=== PATIENT | male | born 1995 | race Caucasian/White ===

== ENCOUNTER 2021-02-04 12:09 | Outpatient (CLI) | payer MEDICARE, MEDICAID ==
[2021-02-04 12:38] LABS: BASOPHILS # (AUTO) 0.1 10^3/uL (0.0-0.1); BASOPHILS % (AUTO) 1.1 %; EOSINOPHILS # (AUTO) 0.2 10^3/uL (0.0-0.7); EOSINOPHILS % (AUTO) 3.5 %; HCT - HEMATOCRIT 42.5 % (42.0-52.0); HGB - HEMOGLOBIN 13.9 g/dL (14.0-18.0); LYMPHOCYTES # (AUTO) 1.5 10^3/uL (1.5-3.5); LYMPHOCYTES % (AUTO) 31.8 %; MEAN CORPUSCULAR HEMOGLOBIN 28.7 pg (27.0-31.0); MEAN CORPUSCULAR HGB CONC 32.7 g/dL (32.0-36.0); MEAN CORPUSCULAR VOLUME 87.6 fL (80.0-94.0); MEAN PLATELET VOLUME 8.9 fL (7.4-11.4); MONOCYTES # (AUTO) 0.2 10^3/uL (0.0-1.0); MONOCYTES % (AUTO) 4.8 %; NEUTROPHILS # (AUTO) 2.7 10^3/uL (1.5-6.6); NEUTROPHILS % (AUTO) 58.6 %; PLT - PLATELET COUNT 237 10^3/uL (130-450); RED BLOOD COUNT 4.85 10^6/uL (4.70-6.10); RED CELL DISTRIBUTION WIDTH 12.6 % (12.0-15.0); WHITE BLOOD COUNT 4.6 x10^3/uL (4.8-10.8)
[2021-02-04 12:56] LABS: ALBUMIN 4.4 g/dL (3.2-5.5); ALBUMIN/GLOBULIN RATIO 1.5 (1.0-2.2); ALKALINE PHOSPHATASE 92 IU/L (42-121); ALT ALANINE AMINOTRANSFERASE 25 IU/L (10-60); AST ASPARTATE AMINOTRANSFERASE 19 IU/L (10-42); BILIRUBIN,TOTAL 0.8 mg/dL (0.2-1.0); BUN - BLOOD UREA NITROGEN 12 mg/dL (6-20); CALCIUM 8.7 mg/dL (8.5-10.3); CARBON DIOXIDE - CO2 25 mmol/L (21-32); CHLORIDE 104 mmol/L (101-111); CHOL/HDL RATIO 4.8 (<5.0); CHOLESTEROL 163 mg/dL; CREATININE 0.3 mg/dL (0.6-1.2); GFR - MDRD 357 (>89); GLUCOSE 90 mg/dL (70-100); HDL CHOLESTEROL 34 mg/dL; LDL CHOLESTEROL,CALCULATED 118 mg/dL; LDL/HDL RATIO 3.5 (<3.6); POTASSIUM 3.4 mmol/L (3.5-5.0); SODIUM 137 mmol/L (135-145); TOTAL PROTEIN 7.3 g/dL (6.7-8.2); TRIGLYCERIDES 56 mg/dL; VLDL CHOLESTEROL 11 mg/dL
[2021-02-04 13:07] LABS: THYROID STIMULATING HORMONE 1.67 uIU/mL (0.34-5.60)
== END 2021-02-04 12:10 | disposition home or self-care (01) ==
LOC: LAB 12:09
PROVIDERS: ATTEND Physician Assistant
DX: Z00.00 Encounter for general adult medical examination without abnormal findings (principal); Z82.49 Family history of ischemic heart disease and other diseases of the circulatory system; I95.9 Hypotension, unspecified; G60.0 Hereditary motor and sensory neuropathy; R33.9 Retention of urine, unspecified; R15.9 Full incontinence of feces; L40.9 Psoriasis, unspecified; G82.20 Paraplegia, unspecified
CPT/HCPCS: 36415; 80053; 80061; 83721; 84443; 85025

== ENCOUNTER 2021-03-15 00:25 | Outpatient (CLI) | payer MEDICARE, MEDICAID | END 2021-03-15 00:26 | disposition critical access hospital (66) | LOC: EMS 00:25 | DX: S79.922A Unspecified injury of left thigh, initial encounter (principal); X58.XXXA Exposure to other specified factors, initial encounter; Y93.89 Activity, other specified | CPT/HCPCS: A0425; A0429 ==

== ENCOUNTER 2021-03-15 00:35 | Emergency (ER) | payer MEDICARE, MEDICAID ==
--- OUTSIDE RECORDS SUMMARY | 2021-03-15 00:52 | EXTERNAL MEDICAL SUMMARY RPT | Continuity of Care Document ---
:1995 Demographics Phone Unavailable Preferred Language Unknown Marital Status Unknown Voodoo Affiliation Unknown Race Unknown Ethnic Group Unknown Author Organization [place] Address [address] [place] [address] Phone Allergies Encounters Medications Problems Results
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
[2021-03-15] MEDS ORDERED: SODIUM CHLORIDE 0.9% 1,000 ML IV STA (04:40)
[2021-03-15 04:49] LABS: BASOPHILS # (AUTO) 0.1 10^3/uL (0.0-0.1); BASOPHILS % (AUTO) 0.7 %; EOSINOPHILS # (AUTO) 0.2 10^3/uL (0.0-0.7); EOSINOPHILS % (AUTO) 2.4 %; HCT - HEMATOCRIT 39.3 % (42.0-52.0); HGB - HEMOGLOBIN 13.1 g/dL (14.0-18.0); LYMPHOCYTES # (AUTO) 1.3 10^3/uL (1.5-3.5); LYMPHOCYTES % (AUTO) 18.2 %; MEAN CORPUSCULAR HGB CONC 33.3 g/dL (32.0-36.0); MEAN CORPUSCULAR VOLUME 87.1 fL (80.0-94.0); MEAN PLATELET VOLUME 9.1 fL (7.4-11.4); MONOCYTES # (AUTO) 0.4 10^3/uL (0.0-1.0); NEUTROPHILS % (AUTO) 72.4 %; PLT - PLATELET COUNT 253 10^3/uL (130-450); RED BLOOD COUNT 4.51 10^6/uL (4.70-6.10); RED CELL DISTRIBUTION WIDTH 12.6 % (12.0-15.0)
[2021-03-15 05:00] LABS: CALCIUM 8.9 mg/dL (8.5-10.3); CREATININE 0.3 mg/dL (0.6-1.2); POTASSIUM 3.9 mmol/L (3.5-5.0)
[2021-03-15 05:01] LABS: INR 1.2 (0.8-1.2); PT - PROTHROMBIN TIME 13.6 secs (9.9-12.6)
[2021-03-15 05:08] LABS: PARTIAL THROMBOPLASTIN TIME 29.9 secs (24.9-33.3)
[2021-03-15 05:58] VITALS: BP 106/75
[2021-03-15 06:08] LABS: B. PARAPERTUSSIS- RESP PCR PAN NOT DETECTED; B. PERTUSSIS- RESP PCR PANEL NOT DETECTED; C. PNEUMONIAE- RESP PCR PANEL NOT DETECTED; CORONAVIRUS 229E-RESP PCR NOT DETECTED; CORONAVIRUS HKU1-RESP PCR NOT DETECTED; CORONAVIRUS NL63-RESP PCR NOT DETECTED; CORONAVIRUS OC43-RESP PCR NOT DETECTED; HUMAN METAPNEUMOVIRUS NOT DETECTED; INFLUENZA A- RESP PCR PANEL NOT DETECTED; INFLUENZA B - RESP PCR PANEL NOT DETECTED; M. PNEUMONIAE- RESP PCR PANEL NOT DETECTED; PARAINFLUENZA VIRUS 1 NOT DETECTED; PARAINFLUENZA VIRUS 2 NOT DETECTED; PARAINFLUENZA VIRUS 3 NOT DETECTED; PARAINFLUENZA VIRUS 4 NOT DETECTED; RHINOVIRUS/ENTEROVIRUS NOT DETECTED; RSV- RESP PCR PANEL NOT DETECTED; SARS-CoV-2 -RESP PCR PANEL NOT DETECTED
--- NOTE | 2021-03-15 10:37 | XRAY Report ---
PROCEDURE: Tib/Fib LT INDICATIONS: heard a pop in L leg TECHNIQUE: 2 views of the tibia and fibula were acquired. COMPARISON: Correlation is made with the accompanying femur plain films, 03/15/2021 FINDINGS: Overlying artifact is seen, which limits evaluation. Bones: No fractures or dislocations. No suspicious bony lesions. The bones demonstrate a deminerali zed appearance, which is consistent with nonweightbearing. Soft tissues: No suspicious soft tissue calcifications or masses. IMPRESSION: Negative for acute fracture. Osteopenia. Note: No significant discrepancy from the preliminary report. Reviewed by: Oscar Velazquez MD on 03/15/2021 9:36 AM SAIDA Approved by: Oscar Velazquez MD on 03/15/2021 9:36 AM SAIDA Station ID: [id number]
--- NOTE | 2021-03-15 10:40 | XRAY Report ---
PROCEDURE: Femur 2V LT INDICATIONS: heard a pop in L thigh TECHNIQUE: 2 views of the femur were acquired. COMPARISON: None. FINDINGS: Bones: There is a transverse fracture with moderate displacement and moderate angulation involving th e left mid femoral shaft. There is partial visualization of callus postoperative change. Chronic appearing irregularity can be seen of the left femoral neck. There is at least partial subluxation of the left hip. The bones are osteopenic. No suspicious bony lesions. Soft tissues: No suspicious soft tissue calcifications or masses. IMPRESSION: Fracture of the midshaft of the left femur. At least partial subluxation of the left hip. This is suspected to be chronic, although it is age-ind eterminate. Osteopenic bones. Pelvis postoperative change partially seen. Chronic appearing deformity of the left femoral neck. Note: No significant discrepancy from the preliminary report. Reviewed by: Oscar Velazquez MD on 03/15/2021 9:39 AM SAIDA Approved by: Oscar Velazquez MD on 03/15/2021 9:39 AM SAIDA Station ID: [id number]
== END 2021-03-15 05:45 | disposition short-term general hospital (02) ==
LOC: EDUNIT# → SUPCPDRO 00:35 → ED 00:35
DX: S72.322A Displaced transverse fracture of shaft of left femur, initial encounter for closed fracture (principal); X50.1XXA Overexertion from prolonged static or awkward postures, initial encounter; Y93.89 Activity, other specified; Y92.003 Bedroom of unspecified non-institutional (private) residence as the place of occurrence of the external cause; G82.50 Quadriplegia, unspecified; V89.2XXS Person injured in unspecified motor-vehicle accident, traffic, sequela; G60.0 Hereditary motor and sensory neuropathy; M85.852 Other specified disorders of bone density and structure, left thigh; M85.862 Other specified disorders of bone density and structure, left lower leg; Z20.822 Contact with and (suspected) exposure to COVID-19
CPT/HCPCS: 0202U; 36415; 80048; 85025; 85610; 85730; 99284; 99285

== ENCOUNTER 2021-03-15 07:10 | Outpatient (CLI) | payer MEDICARE, MEDICAID | END 2021-03-15 07:11 | disposition short-term general hospital (02) | LOC: EMS 07:10 | PROVIDERS: ATTEND Emergency Medicine | DX: M84.452A Pathological fracture, left femur, initial encounter for fracture (principal); G82.50 Quadriplegia, unspecified; Z74.01 Bed confinement status; S79.922A Unspecified injury of left thigh, initial encounter; X58.XXXA Exposure to other specified factors, initial encounter; Y93.89 Activity, other specified | CPT/HCPCS: A0425; A0428; A0429 ==

== ENCOUNTER 2021-07-06 07:24 | Outpatient (CLI) | payer MEDICARE, MEDICAID | END 2021-07-06 07:25 | disposition EMS.NT | LOC: EMS 07:24 | DX: R51.9 Headache, unspecified (principal); R68.2 Dry mouth, unspecified ==

== ENCOUNTER 2021-07-27 16:51 | Outpatient (CLI) | payer MEDICARE, MEDICAID ==
--- NOTE | 2021-07-28 10:57 | Ultrasound Report ---
PROCEDURE: Retroperitoneal INDICATIONS: NEUROGENIC BLADDER, THORACIC SPINAL CORD INJURY TECHNIQUE: Real-time scanning was performed of the kidneys and bladder, with image documentation. COMPARISON: None. FINDINGS: Evaluation limited by patient's limited mobility. Kidneys: Right kidney measures 9.3 cm long; left kidney measures 9.9 cm long. Right renal cortical thickness is 1.2 cm; left renal cortical thickness is 1 cm. Renal cortical echotexture within the ri ght kidney is within normal limits with evaluation limited in the left kidney. There is preserved cor ticomedullary differentiation. No hydronephrosis or discrete shadowing renal stones. No suspicious solid mass lesions identified sonographically. There is a small cyst within the interpolar region of the left kidney measuring up to 1.4 x 0.7 x 1.1 cm. Bladder: Pre-void bladder volume is 88 mL. Post-void residual is 5 mL. Pre-void images demonstrate no intraluminal masses or stones. On pre-void images, bilateral ureteral jets are noted with color Doppler interrogation. Miscellaneous: No free pelvic fluid. IMPRESSION: 1. Small postvoid residual volume of 5 mL. 2. No evidence of hydronephrosis. Reviewed by: Carl Rader MD on 07/28/2021 10:55 AM PDT Approved by: Carl Rader MD on 07/28/2021 10:55 AM PDT Station ID: [id number]
== END 2021-07-27 16:52 | disposition home or self-care (01) ==
LOC: DI 16:51
PROVIDERS: ATTEND Internal Medicine
DX: N31.9 Neuromuscular dysfunction of bladder, unspecified (principal); S24.109S Unspecified injury at unspecified level of thoracic spinal cord, sequela

== ENCOUNTER 2021-07-29 12:22 | Outpatient (CLI) | payer MEDICARE, MEDICAID ==
--- NOTE | 2021-07-29 13:18 | XRAY Report ---
PROCEDURE: Femur 2V LT INDICATIONS: TRAUMATIC CLOSED DISPLACED FRACTURE OF SHAFT TECHNIQUE: 2 views of the femur were acquired. COMPARISON: March 15, 2021. FINDINGS: BONES: Diffuse osteopenia. Redemonstrated superior subluxation/dislocation of the femoral head. Intra medullary hardware is seen within the left femur with callus formation about the fracture site. SOFT TISSUES: No focal abnormality. IMPRESSION: 1.No acute osseous abnormality. Reviewed by: Jose Hayes MD on 07/29/2021 1:16 PM PDT Approved by: Jose Hayes MD on 07/29/2021 1:16 PM PDT Station ID: [id number]
== END 2021-07-29 12:23 | disposition home or self-care (01) ==
LOC: DI 12:22
PROVIDERS: ATTEND Orthopaedic Surgery
DX: S72.302D Unspecified fracture of shaft of left femur, subsequent encounter for closed fracture with routine healing (principal)

== ENCOUNTER 2022-03-03 04:13 | Outpatient (CLI) | payer MEDICARE, MEDICAID | END 2022-03-03 04:14 | disposition critical access hospital (66) | LOC: EMS 04:13 | DX: R51.9 Headache, unspecified (principal) | CPT/HCPCS: A0425; A0429 ==

== ENCOUNTER 2022-03-03 04:20 | Emergency (ER) | payer MEDICARE, MEDICAID ==
[2022-03-03] MEDS ORDERED: SODIUM CHLORIDE 0.9% 1,000 ML IV STA (04:31)
[2022-03-03] MEDS ORDERED: diphenhydrAMINE INJ 50 MG/ML VIAL IVP STA (04:31)
[2022-03-03] MEDS ORDERED: KETOROLAC 30 MG/ML VIAL IVP STA (04:31)
[2022-03-03] MEDS ORDERED: PROCHLORPERAZINE 10 MG/2 ML VIAL IVP STA (04:31)
[2022-03-03 04:42] LABS: BASOPHILS # (AUTO) 0.1 10^3/uL (0.0-0.1); BASOPHILS % (AUTO) 0.7 %; EOSINOPHILS # (AUTO) 0.2 10^3/uL (0.0-0.7); EOSINOPHILS % (AUTO) 3.1 %; HCT - HEMATOCRIT 47.5 % (42.0-52.0); LYMPHOCYTES # (AUTO) 1.7 10^3/uL (1.5-3.5); LYMPHOCYTES % (AUTO) 25.7 %; MEAN CORPUSCULAR HEMOGLOBIN 28.7 pg (27.0-31.0); MEAN CORPUSCULAR HGB CONC 33.7 g/dL (32.0-36.0); MEAN CORPUSCULAR VOLUME 85.1 fL (80.0-94.0); MEAN PLATELET VOLUME 9.1 fL (7.4-11.4); MONOCYTES # (AUTO) 0.3 10^3/uL (0.0-1.0); NEUTROPHILS # (AUTO) 4.4 10^3/uL (1.5-6.6); NEUTROPHILS % (AUTO) 66.2 %; PLT - PLATELET COUNT 263 10^3/uL (130-450); RED BLOOD COUNT 5.58 10^6/uL (4.70-6.10); RED CELL DISTRIBUTION WIDTH 12.8 % (12.0-15.0); WHITE BLOOD COUNT 6.7 x10^3/uL (4.8-10.8)
[2022-03-03 04:54] LABS: ALBUMIN 4.7 g/dL (3.2-5.5); ALBUMIN/GLOBULIN RATIO 1.2 (1.0-2.2); BILIRUBIN,TOTAL 0.6 mg/dL (0.2-1.0); CALCIUM 9.2 mg/dL (8.5-10.3); CREATININE 0.4 mg/dL (0.6-1.2); POTASSIUM 3.5 mmol/L (3.5-5.0); TOTAL PROTEIN 8.5 g/dL (6.7-8.2)
[2022-03-03] MEDS ORDERED: ONDANSETRON ODT 4 MG Prepack 2 TL PRN (05:26)
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
[2022-03-03 05:42] LABS: B. PARAPERTUSSIS- RESP PCR PAN NOT DETECTED; B. PERTUSSIS- RESP PCR PANEL NOT DETECTED; C. PNEUMONIAE- RESP PCR PANEL NOT DETECTED; CORONAVIRUS 229E-RESP PCR NOT DETECTED; CORONAVIRUS HKU1-RESP PCR NOT DETECTED; CORONAVIRUS NL63-RESP PCR NOT DETECTED; CORONAVIRUS OC43-RESP PCR NOT DETECTED; HUMAN METAPNEUMOVIRUS NOT DETECTED; INFLUENZA A- RESP PCR PANEL NOT DETECTED; INFLUENZA B - RESP PCR PANEL NOT DETECTED; M. PNEUMONIAE- RESP PCR PANEL NOT DETECTED; PARAINFLUENZA VIRUS 1 NOT DETECTED; PARAINFLUENZA VIRUS 2 NOT DETECTED; PARAINFLUENZA VIRUS 3 NOT DETECTED; PARAINFLUENZA VIRUS 4 NOT DETECTED; RHINOVIRUS/ENTEROVIRUS NOT DETECTED; RSV- RESP PCR PANEL NOT DETECTED; SARS-CoV-2 -RESP PCR PANEL NOT DETECTED
[2022-03-03 05:55] VITALS: BP 139/89
== END 2022-03-03 06:10 | disposition home or self-care (01) ==
LOC: EDUNIT# → ED 04:20
DX: R51.9 Headache, unspecified (principal); R53.2 Functional quadriplegia; Z20.822 Contact with and (suspected) exposure to COVID-19
CPT/HCPCS: 36415; 80053; 85025; 87633; 96374; 96375; 99282; 99283; J1200